=== PATIENT | male | born 1995 | race Two or more races ===

== ENCOUNTER 2020-08-07 09:49 | Emergency (ER) | payer OTHER | END 2020-08-07 10:20 | disposition home or self-care (01) | LOC: M ED 09:49 | DX: S01.01XA Laceration without foreign body of scalp, initial encounter (principal); W01.10XA Fall on same level from slipping, tripping and stumbling with subsequent striking against unspecified object, initial encounter; Y92.89 Other specified places as the place of occurrence of the external cause; Y93.9 Activity, unspecified; Y99.9 Unspecified external cause status ==

== ENCOUNTER 2020-08-15 06:35 | Emergency (ER) | payer OTHER ==
[~2020-08-15] VITALS: Ht 180.3 cm; Wt 63.6 kg
[2020-08-15 06:35] VITALS: BP 124/78
== END 2020-08-15 07:06 | disposition home or self-care (01) ==
LOC: M ED 06:35
DX: Z48.02 Encounter for removal of sutures (principal)